=== PATIENT | male | born 1985 | race Caucasian/White ===

== ENCOUNTER 2016-05-26 18:37 | Emergency (ER) | payer MEDICAID ==
[~2016-05-26] VITALS: Ht 167.6 cm; Wt 70.0 kg
[2016-05-26 20:00] VITALS: BP 130/85
== END 2016-05-26 20:00 | disposition home or self-care (01) ==
LOC: ED 18:37
DX: S01.81XA Laceration without foreign body of other part of head, initial encounter (principal); Y04.2XXA Assault by strike against or bumped into by another person, initial encounter; Y93.89 Activity, other specified; Y92.89 Other specified places as the place of occurrence of the external cause; Y99.8 Other external cause status
CPT/HCPCS: 90715